=== PATIENT | female | born 1970 | race Caucasian/White ===

== ENCOUNTER → 2019-01-22 | Outpatient (CLI) | payer OTHER ==
[2019-01-22 11:54] LABS: T3 TOTAL 0.93 ng/mL
[2019-01-22 11:58] LABS: ALBUMIN 3.8 g/dL (3.4-5.0); ALKALINE PHOSPHATASE 58 U/L (46-116); ALT/SGPT 33 U/L (14-59); AST/SGOT 14 U/L (15-37); BILIRUBIN TOTAL 0.33 mg/dL (0.20-1.00); CALCIUM 8.5 mg/dL (8.5-10.1); CARBON DIOXIDE 27.4 mmol/L (21-32); CHLORIDE SERUM 105 mmol/L (98-107); CHOLESTEROL 154 mg/dL (<200); CREATININE SERUM 0.8 mg/dL (0.6-1.0); FREE T4 0.77 ng/dL (0.76-1.46); GFR1 > 60 mL/min; GLUCOSE SERUM 106 mg/dL (74-106); POTASSIUM SERUM 4.5 mmol/L (3.5-5.1); SODIUM SERUM 140 mmol/L (136-145); TOTAL PROTEIN, SERUM 7.4 g/dL (6.4-8.2); TRIGLYCERIDES 65 mg/dL (<150)
[2019-01-22 12:00] LABS: CHOLESTEROL/HDL RATIO 2.4; HDL CHOLESTEROL 65 mg/dL (40-60)
[2019-01-23 04:06] LABS: RAPID PLASMA REAGIN Non Reactive (Non Reactive)
== END | disposition home or self-care (01) ==
LOC: LB 10:43
DX: Z00.00 Encounter for general adult medical examination without abnormal findings (principal); M54.6 Pain in thoracic spine; M53.3 Sacrococcygeal disorders, not elsewhere classified
CPT/HCPCS: 72072; 84439; 87491; 87591; Q0092